=== PATIENT | female | born 1995 | race Caucasian/White ===

== ENCOUNTER 2017-12-26 18:06 | Emergency (ER) | payer OTHER ==
[~2017-12-26] VITALS: Ht 157.5 cm; Wt 49.0 kg
[2017-12-26 18:16] VITALS: Ht 157.5 cm; Wt 49.0 kg
[2017-12-26 18:47] LABS: BASOPHIL % 0.3 % (0-2); PLATELET COUNT 283 x10^3mcL (130-400); RED CELL DISTRIBUTION WIDTH 12.4 % (11.5-14.5)
[2017-12-26 18:56] LABS: CALCIUM 8.8 mg/dL (8.5-10.1); CARBON DIOXIDE 27.6 mmol/L (21-32); CHLORIDE SERUM 104 mmol/L (98-107); CREATININE SERUM 0.7 mg/dL (0.6-1.0); GFR1 > 60 mL/min; GLUCOSE SERUM 116 mg/dL (74-106); POTASSIUM SERUM 3.8 mmol/L (3.5-5.1); SODIUM SERUM 139 mmol/L (136-145)
[2017-12-26 19:00] LABS: ALBUMIN 4.4 g/dL (3.4-5.0); ALKALINE PHOSPHATASE 101 U/L (46-116); ALT/SGPT 30 U/L (14-59); AMYLASE 84 U/L (25-115); AST/SGOT 22 U/L (15-37); BILIRUBIN TOTAL 0.4 mg/dL (0.20-1.00); LIPASE 120 IU/L (73-393); TOTAL PROTEIN, SERUM 8.3 g/dL (6.4-8.2)
[2017-12-26 19:45] VITALS: BP 115/80
== END 2017-12-26 19:45 | disposition home or self-care (01) ==
LOC: ED 18:06
PROVIDERS: Emergency Medicine
DX: R10.12 Left upper quadrant pain (principal)
CPT/HCPCS: 36415; 83880; J1885

== ENCOUNTER 2017-12-29 12:16 | Emergency (ER) | payer OTHER ==
[~2017-12-29] VITALS: Ht 147.3 cm; Wt 49.0 kg
[2017-12-29 12:24] VITALS: Ht 147.3 cm; Wt 49.0 kg
[2017-12-29 12:57] LABS: microscopic required? NO
[2017-12-29 13:09] LABS: UA SPECIFIC GRAVITY <=1.005 (1.005-1.035); urine erythrocyte NEGATIVE (NEGATIVE)
[2017-12-29 13:09] LABS: BASOPHIL % 0.3 % (0-2); PLATELET COUNT 257 x10^3mcL (130-400); RED CELL DISTRIBUTION WIDTH 12.7 % (11.5-14.5)
[2017-12-29 13:23] LABS: ALBUMIN 4.1 g/dL (3.4-5.0); ALKALINE PHOSPHATASE 90 U/L (46-116); ALT/SGPT 25 U/L (14-59); AMYLASE 69 U/L (25-115); AST/SGOT 20 U/L (15-37); BILIRUBIN TOTAL 0.3 mg/dL (0.20-1.00); CARBON DIOXIDE 29.7 mmol/L (21-32); CHLORIDE SERUM 101 mmol/L (98-107); CREATININE SERUM 0.8 mg/dL (0.6-1.0); GFR1 > 60 mL/min; GLUCOSE SERUM 118 mg/dL (74-106); LIPASE 112 IU/L (73-393); POTASSIUM SERUM 4.1 mmol/L (3.5-5.1); SODIUM SERUM 137 mmol/L (136-145); TOTAL PROTEIN, SERUM 7.7 g/dL (6.4-8.2)
[2017-12-29 13:28] LABS: CALCIUM 8.5 mg/dL (8.5-10.1)
[2017-12-29 15:44] VITALS: BP 108/66
== END 2017-12-29 15:44 | disposition home or self-care (01) ==
LOC: ED 12:16
PROVIDERS: Emergency Medicine
DX: K59.00 Constipation, unspecified (principal)
CPT/HCPCS: 36415; J1885; Q0162

== ENCOUNTER 2019-03-06 10:07 | Emergency (ER) | payer OTHER ==
[~2019-03-06] VITALS: Ht 147.3 cm; Wt 44.2 kg
[2019-03-06 10:13] VITALS: Ht 147.3 cm; Wt 44.2 kg
[2019-03-06 10:42] VITALS: BP 95/60
== END 2019-03-06 10:42 | disposition home or self-care (01) ==
LOC: ED 10:07
DX: J06.9 Acute upper respiratory infection, unspecified (principal); J04.0 Acute laryngitis